=== PATIENT | female | born 1955 | race American Indian/Alaskan Native ===

== ENCOUNTER 2021-08-24 22:52 | Emergency (ER) | payer MEDICARE, OTHER ==
[2021-08-24] MEDS ORDERED: niCARdipine DRIP 40 MG/200 ML BAG IV ONE (23:16)
--- NOTE | 2021-08-24 23:19 | Emergency Department Report ---
ED General Adult HPI - General Stated complaint: POSS STROKE Time Seen by Provider: 08/24/21 22:55 Source: family, EMS - History of Present Illness Initial comments: patient presents with complaints of sudden onset of fixed gaze of eyes and repeating herself. Patient unable to give any history 2/2 AMS. Per patient's son, her last known normal was at 8:30 pm. Patient has a hx of HTN, CVA/SAH and cerebral aneurysm. - Related Data Home Medications Medication Instructions Recorded Confirmed Last Taken No Known Home Medications [No 03/20/13 03/20/13 Unknown Reported Home Medications] Allergies Allergy/AdvReac Type Severity Reaction Status Date / Time No Known Allergies Allergy Verified 08/24/21 23:19 ED Review of Systems ROS: Stated complaint: POSS STROKE Other details as noted in HPI Comment: Unobtainable due to pts medical conditions ED Past Medical Hx - Past Medical History Previous Medical History?: Yes Hx Hypertension: Yes Hx CVA: Yes (SAH; cerebral aneurysm) - Social History Smoking Status: Never Smoker Substance Use Type: Marijuana - Medications Home Medications: Home Medications Medication Instructions Recorded Confirmed Last Taken Type No Known Home Medications [No 03/20/13 03/20/13 Unknown History Reported Home Medications] ED Physical Exam - General General appearance: alert, in no apparent distress - Head Head exam: Present: atraumatic, normocephalic - Eye Eye exam: Present: other (fixed L-roth gaze) - ENT ENT exam: Present: mucous membranes moist, other (airway patent; mild R facial asymmetry) - Respiratory Respiratory exam: Present: other (good air entry, nml I:E, CTAB, no use of MARY) - Cardiovascular Cardiovascular Exam: Present: regular rate. Absent: rubs, gallop - GI/Abdominal GI/Abdominal exam: Present: soft, normal bowel sounds. Absent: distended - Extremities Exam Extremities exam: Present: full ROM, other (no deformity) - Neurological Exam Neurological exam: Present: other (GCS 11/15 (M4V3E4); NIH 27) - Skin Skin exam: Present: warm, normal color ED Course Vital Signs 08/24/21 08/25/21 08/25/21 23:25 01:15 01:25 Temperature 97.6 F Pulse Rate 65 123 H Respiratory 14 22 Rate Blood Pressure 194/109 159/94 [Left] O2 Sat by Pulse 100 100 100 Oximetry - Intubation Time Out Performed: Yes Sedative: Etomidate Mg Given: 20 Paralytic: Rocuronium Mg Given: 60 Laryngoscope: other (Glidescope) Size: 3 ET Tube Size: 7.5 Tube Secured Depth (cm): 21 Tube Secured Location: lips Tube Placement Confirmation: visualized tube passing t, equal breath sounds bilat, no breath sounds over epi, confirmation by capnometr Patient Tolerated Procedure: well Intubation Complications: none Additional Comments: Performed by Dr. Ibrahim ED Medical Decision Making - Lab Data Result diagrams: 08/24/21 23:19 08/24/21 23:19 Laboratory Tests 08/24/21 08/24/21 08/24/21 23:19 23:19 23:19 WBC 5.9 RBC 4.64 Hgb 14.1 Hct 42.0 MCV 91 MCH 30 MCHC 34 RDW 13.2 Plt Count 178 Lymph % (Auto) 31.9 Jennings % (Auto) 7.8 H Eos % (Auto) 1.2 Baso % (Auto) 0.3 Lymph # (Auto) 1.9 Jennings # (Auto) 0.5 Eos # (Auto) 0.1 Baso # (Auto) 0.0 Seg Neutrophils % 58.8 Seg Neutrophils # 3.5 PT 13.8 INR 0.96 APTT 37.0 H Sodium 143 Potassium 3.7 Chloride 105.9 Carbon Dioxide 22 Anion Gap 19 BUN 11 Creatinine 0.8 Estimated GFR > 60 BUN/Creatinine Ratio 14 Glucose 96 Calcium 9.7 Total Bilirubin 1.30 H AST 19 ALT 8 Alkaline Phosphatase 99 Troponin T < 0.010 Total Protein 7.2 Albumin 4.4 Albumin/Globulin Ratio 1.6 CT head: L parietal intracerebral hemorrhage CXR #1: no acute cardiopulmonbary process CXR #2: ET tube in good position EKG: HR 78, SR, nml OK, narrow QRS, J point depressions in V3 - V6 Received cardene gtt. also placed on midazolam gtt - Medical Decision Making Likely 2/2 intracerebral hemorrhage from hypertensive emergency. Teleneurologist consulted and agrees tPA contrainidicated. Dr. Figueroa ([facility] triage doc) called. He requests transferring patient to [facility]. Dr. Hankins (neurocritical care doc @ [facility]) then called. he accepted the patient in consultation. Patient's GCS dropped to 6/15 ([id number]). Decision then made to intubate patient. Critical care time in (mins) excluding proc time.: 60 Critical care attestation.: If time is entered above; I have spent that time in minutes in the direct care of this critically ill patient, excluding procedure time. ED Disposition Clinical Impression: Intracerebral hemorrhage, Hypertensive emergency Disposition: 51 HOSPICE/MEDICAL FACILITY Is pt being admited?: No Does the pt Need Aspirin: No Condition: Critical Instructions: Hypertension (ED) Time of Disposition: 00:45 (Patient transferred to [facility] to Dr. Hankins. Sign out was given by me to the accepting physician)
[2021-08-24 23:25] LABS: Basophils % (Auto) 0.3 % (0.0-1.8); Eosinophils # (Auto) 0.1 K/mm3 (0.0-0.4); Eosinophils % (Auto) 1.2 % (0.0-4.3); Hemoglobin 14.1 gm/dl (10.1-14.3); Lymphocytes # (Auto) 1.9 K/mm3 (1.2-5.4); Lymphocytes % (Auto) 31.9 % (13.4-35.0); Mean Corpuscular HGB Conc 34 % (30-34); Mean Corpuscular Volume 91 fl (79-97); Monocytes # (Auto) 0.5 K/mm3 (0.0-0.8); Monocytes % (Auto) 7.8 % (0.0-7.3); Platelet Count 178 K/mm3 (140-440); Red Blood Count 4.64 M/mm3 (3.65-5.03); Red Cell Distribution Width 13.2 % (13.2-15.2)
--- NOTE | 2021-08-24 23:34 | Cat Scan Report ---
CT HEAD WITHOUT CONTRAST INDICATION / CLINICAL INFORMATION: CODE STROKE PROTOCOL!!! Stroke-Like symptoms. TECHNIQUE: CT head was performed without administration of intravenous contrast. All CT scans at this location are performed using CT dose reduction for ALARA by means of automated exposure control. COMPARISON: CT head 03/20/2013 FINDINGS: An acute intra-axial hemorrhage centered within the left parietal white matter measures 4.7 cm transv erse dimension, 4.3 cm AP dimension, and 5 cm in craniocaudal dimension. Surrounding low attenuation compatible with vasogenic edema is demonstrated. Moderate hypoattenuation the adjacent white matter w ithin the centrum semiovale bilaterally is demonstrated. Small lacunar infarction right thalamus. Per iventricular white matter hypoattenuation compatible with microvascular ischemia. Moderate effacement of the posterior horn left lateral ventricle. No significant midline shift. Interval left occipital craniotomy defect. Underlying left cerebellar encephalomalacia. ORBITS: No significant abnormality. SOFT TISSUES: No significant abnormality. SKULL: No significant abnormality. PARANASAL SINUSES / MASTOID AIR CELLS: Normal as visualized. ADDITIONAL FINDINGS: None. IMPRESSION: 1. Acute intra-axial hemorrhage left parietal white matter as detailed with surrounding vasogenic dayana ma and moderate effacement posterior horn left lateral ventricle. 2. Microvascular ischemic disease moderate in severity. No obvious underlying intracranial masses are clearly demonstrated. Given the history of craniotomy defect, correlation with known clinical histor y is recommended. 3. Interval left occipital craniotomy defect with underlying cerebellar postoperative changes and enc ephalomalacia. CODE STROKE Time of Communication (PRODUCT TESTER/CDT): 2229 hours Licensed Practitioner Receiving Report: Dr. Ibrahim Signer Name: Kvng Arthur II, MD Signed: 08/24/2021 11:30 PM Workstation Name: [id number]
[2021-08-24 23:39] LABS: INR 0.96 (0.87-1.13)
[2021-08-24 23:51] LABS: Alanine Aminotransferase 8 units/L (7-56); Albumin 4.4 g/dL (3.9-5); BUN/Creatinine Ratio 14; Blood Urea Nitrogen 11 mg/dL (7-17); Calcium 9.7 mg/dL (8.4-10.2); Hemolysis Index 24
--- NOTE | 2021-08-24 23:54 | XRay Report ---
CHEST 1 VIEW INDICATION / CLINICAL INFORMATION: stroke. COMPARISON: Chest x-ray 03/20/2013 FINDINGS: SUPPORT DEVICES: None. HEART / MEDIASTINUM: No significant abnormality. LUNGS / PLEURA: No significant pulmonary or pleural abnormality. BONES: No significant osseous abnormality. ADDITIONAL FINDINGS: No significant additional findings. IMPRESSION: 1. No active cardiopulmonary disease. Signer Name: Kvng Arthur II, MD Signed: 08/24/2021 11:49 PM Workstation Name: [id number]
[2021-08-25] MEDS ORDERED: ETOMIDATE 20 MG/10 ML INJ IV ONE ×3 (00:05→01:32)
[2021-08-25] MEDS ORDERED: ROCURONIUM 50 MG/5 ML INJ IV ONE ×2 (00:09→01:32)
[2021-08-25] MEDS ORDERED: MIDAZOLAM/NS Drip 100mg/100ml 100 MG/100 ML BAG IV SCH (01:00)
--- NOTE | 2021-08-25 01:26 | XRay Report ---
CHEST 1 VIEW INDICATION / CLINICAL INFORMATION: ET tube placement. COMPARISON: Chest x-ray 08/24/2021 FINDINGS: SUPPORT DEVICES: Stable placement of endotracheal tube tip 5 to 6 cm above the angie. HEART / MEDIASTINUM: Stable interval appearance of the cardiomediastinal silhouette. LUNGS / PLEURA: No significant interval change. BONES: No significant osseous abnormality. ADDITIONAL FINDINGS: No significant additional findings. IMPRESSION: 1. No active cardiopulmonary disease. 2. Interval placement of endotracheal tube tip 5-6 cm above the angie. Signer Name: Kvng Arthur II, MD Signed: 08/25/2021 1:22 AM Workstation Name: [facility] [id number]
[2021-08-25 02:49] VITALS: BP 134/88
--- NOTE | 2021-08-25 03:07 | Consultation ---
History of Present Illness History of present illness: [place] [facility] Consult Note # Demographics Consult Type: Acute Stroke Level 1 (0-4.5 hrs) Patient Location: Emergency Room First Name: Ana Luisa Last Name: Henry Date of : 1955 Age: 66 Gender: Female Facility: [facility] Time of Initial Page ( Time): 08/24/2021, 22:47 Time of Return Call ( Time): 08/24/2021, 22:48 # HPI History: 66F with history of brain aneurysms presents with unresponsiveness with fixed leftward gaze. LKWT 2029. Keeps repeating the phrase "what is this". BP 200/120. # Scores Time of exam and NIHSS (): 08/24/2021, 23:01 Level of Consciousness 1a: [3] = Responds only with reflex motor or unresponsive LOC Questions 1b: [2] = Answers neither correctly LOC Commands 1c: [2] = Performs neither correctly Best Gaze 2: [2] = Forced deviation Visual 3: [0] = No visual loss Facial Palsy 4: [0] = Normal symmetrical movements Motor Arm Left 5a: [2] = Some effort against gravity Motor Arm Right 5b: [4] = No movement Motor Leg Left 6a: [2] = Some effort against gravity Motor Leg Right 6b: [4] = No movement Limb Ataxia 7: [0] = Absent Sensory 8: [2] = Severe to total sensory loss Best Language 9: [2] = Severe aphasia Dysarthria 10: [2] = Severe dysarthria Extinction and Inattention 11: [2] = Profound guanako-inattention or extinction to more than one modality NIHSS Total: 29 # Data Time Head CT personally read by me ( Time): 08/24/2021, 23:[address]: hemorrhage L parieto-frontal hemorrhage # Assessment Impression: Intracerebral hemorrhage # Plan Thrombolytic/Intervention: NOT IV Thrombolysis or IA Intervention candidate Thrombolytic Exclusion (< 3 hour window): ICH Intraarterial Exclusion: ICH Target Blood Pressure: SBP < 160 DBP < 105 Other: I have discussed my recommendations with the referring provider Additional Recommendations: Intubate for airway protection and transfer HOB > 30 degrees Disposition: transfer # Logistics Telemedicine: Interactive 2 way audio and visual telecommunication technology was utilized during this visit Electronically signed at 08/25/2021 03:07 (Eastern Time) by Deandre Teran MD Medications and Allergies Allergies Allergy/AdvReac Type Severity Reaction Status Date / Time No Known Allergies Allergy Verified 08/24/21 23:19 Home Medications Medication Instructions Recorded Confirmed Last Taken Type No Known Home Medications [No 03/20/13 03/20/13 Unknown History Reported Home Medications] Physical Examination - Vital Signs Vital Signs: Vital Signs Temp Pulse Resp BP Pulse Ox 97.6 F 65 14 194/109 100 08/24/21 23:25 08/24/21 23:25 08/24/21 23:25 08/24/21 23:25 08/24/21 23:25 Results - Laboratory Findings CBC and BMP: 08/24/21 23:19 08/24/21 23:19 Abnormal Lab Findings: Abnormal Labs 08/24/21 08/24/21 08/24/21 23:19 23:19 23:19 Wheeler % (Auto) 7.8 H APTT 37.0 H Total Bilirubin 1.30 H
--- NOTE | 2021-08-25 10:36 | Electrocardiograph Report ---
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
== END 2021-08-25 02:15 | disposition hospice, inpatient (51) ==
LOC: ED 22:52
DX: I61.9 Nontraumatic intracerebral hemorrhage, unspecified (principal); I16.1 Hypertensive emergency; F12.90 Cannabis use, unspecified, uncomplicated
CPT/HCPCS: 36415; 70450; 71045; 80053; 84484; 85025; 85610; 85730; 93005; 96365; 96366; 99291; J2250; J3490; 94002; 96367; 96375; 99285